=== PATIENT | female | born 1975 | race Caucasian/White ===

== ENCOUNTER 2020-06-15 19:48 | Emergency (ER) | payer OTHER ==
[~2020-06-15] VITALS: Ht 172.7 cm; Wt 127.0 kg
[~2020-06-15 19:48] MED LIST: HYDR-2890 PO; LIRA0.6P SQ; PREN1TAB14 PO
[2020-06-15 20:14] LABS: BILIRUBIN,URINE NEGATIVE (NEGATIVE); CLARITY,URINE CLEAR; COLOR,URINE YELLOW; GLUCOSE, URINE (UA) 3+ (NEGATIVE); KETONES,URINE NEGATIVE (NEGATIVE); LEUKOCYTE ESTERASE ,URINE NEGATIVE (NEGATIVE); NITRITE,URINE NEGATIVE (NEGATIVE); PROTEIN,URINE NEGATIVE (NEGATIVE)
[2020-06-15 20:20] LABS: BACTERIA,URINE TRACE /HPF
[2020-06-15 20:24] LABS: AMPHETAMINE SCREEN, URINE POSITIVE (NEGATIVE); BARBITURATE SCREEN URINE NEGATIVE (NEGATIVE); BENZODIAZEPINES SCREEN URINE NEGATIVE (NEGATIVE); CANNABINOID SCREEN, URINE NEGATIVE (NEGATIVE); COCAINE SCREEN URINE NEGATIVE (NEGATIVE); METHADONE STAT NEGATIVE (NEGATIVE); METHAMPHETAMINE SCREEN URINE S NEGATIVE (NEGATIVE); OPIATE SCREEN URINE NEGATIVE (NEGATIVE); OXYCODONE STAT NEGATIVE (NEGATIVE); PROPOXYPHENE STAT NEGATIVE (NEGATIVE); TRICYCLIC ANTIDEPRESSANTS SCRE NEGATIVE (NEGATIVE)
--- NOTE | 2020-06-15 20:29 | Diagnostic Imaging Report ---
EXAMINATION: Chest 2 view HISTORY: Chest pain. COMPARISON: None available. FINDINGS: The lung volumes are normal. No focal consolidation is seen. No large pleural effusion or pneumothorax is seen. The cardiomediastinal silhouette is normal in size and contour. No acute osseous abnormality is seen. IMPRESSION: 1. No acute pleuroparenchymal process. Dictated by: Dictated on workstation # [id number]
--- NOTE | 2020-06-15 20:31 | Diagnostic Imaging Report ---
CLINICAL HISTORY: Right-sided chest pain. Rib pain. COMPARISON: None. TECHNIQUE: 3 views of the right ribs. FINDINGS: No acute fracture or dislocation is seen in the right ribs. No pleural effusion or pneumothorax on the right. IMPRESSION: 1. No acute displaced fracture or dislocation in the right ribs. Dictated by: Dictated on workstation # [id number]
[2020-06-15] MEDS ORDERED: KETOROLAC 30 MG/ML VIAL IVP STA (20:50)
[2020-06-15] MEDS ORDERED: NS IV 1000 ML 1,000 ML IV SCH (21:00)
--- NOTE | 2020-06-15 21:02 | ED General ---
General Chief Complaint: Chest Wall Stated Complaint: RLQ PAIN Nursing Triage Note: TO ED VIA POV AND AMBULATORY TO ROOM 7 WITH C/O RIGHT SIDE PAIN THAT HAS BEEN ONGOING ON AND OFF FOR 6 MONTHS. WHILE DRIVING AT 1700 STATES SHE "FELT A POP" ON THE RIGHT SIDE UNDER BREAST WITH PAIN RADIATING TO BACK, STATING IT HURTS TO MOVE AND PAINFUL WITH INSPIRATION. TOOK IBUPROFEN AT 1800. Nursing Sepsis Screen: No Definite Risk Source of Information: Patient History of Present Illness Date Seen by Provider: Jun 15, 2020 Time Seen by Provider: 19:55 Initial Comments PT ARRIVES VIA POV FROM HOME C/O PAIN IN RUQ/RIGHT LOWER RIBS, RADIATING AROUND TO RIGHT BACK HAS HAD THIS PAIN OFF AND ON FOR OVER A YEAR PT HAD HEPATITIS C--DX LAST YEAR, AND COMPLETED TREATMENT LAST 2019, AND PAIN WAS BETTER, THEN RETURNED SEVERAL MONTHS AGO PT HAD CHOLECYSTECTOMY 02/2019 FOR THIS SAME PAIN, AND PAIN GOT BETTER AFTER AFTER THAT AND THEN RETURNED TODAY AROUND 1700, WHILE DRIVING SHE FELT A "POP" IN THIS AREA TOOK IBUPROFEN AT 1800, WITHOUT RELIEF HAS TRAMADOL, BUT HAS NOT TAKEN ANY. "AFRAID TO MASK ANYTHING" C/O PAIN WITH INHALATION C/O INCREASED PAIN WITH ANY MOVEMENT OF TRUNK NO FEVER/SWEATS/CHILLS NO NAUSEA/VOMITING/DIARRHEA NO URINARY SYMPTOMS LMP 3 WEEKS AGO, NO CONTROL. STATES ALL PREVIOUS WORK-UP'S/TREATMENTS FOR THIS WERE DONE AT [facility]--REGARDING GALLBLADDER AND HEPATITIS C HAS NOT SEEN ANYONE IN MONTHS FOR IT PT HAS NOT BEEN HERE SINCE 2012 PT HAD COVID-19 IN JANUARY 2020--NO SEVERE ILLNESS OR HOSPITALIZATION. PCP: GUY Allergies and Home Medications Allergies Coded Allergies: morphine (Verified Allergy, Unknown, 06/15/20) Home Medications Cyclobenzaprine HCl 10 Mg Tablet, 10 MG PO Q8H PRN for SPASMS Prescribed by: KRIS CHAVES on 06/15/202207 Hydrocodone Bit/Acetaminophen 1 Each Tablet, 1 EACH PO Q4H PRN Prescribed by: ALEXANDRU GHOTRA on 09/10/122143 Ketorolac Tromethamine 10 Mg Tablet, 10 MG PO Q6H Prescribed by: KRIS CHAVES on 06/15/202207 Liraglutide 0.6 Mg/0.1 Ml Pen.injctr, 0.6 MG SQ DAILY, (Reported) Patient Home Medication List Home Medication List Reviewed: Yes Review of Systems Review of Systems Constitutional: no symptoms reported; No chills, No diaphoresis, No fever EENTM: no symptoms reported Respiratory: see HPI; No cough Cardiovascular: see HPI, chest pain Gastrointestinal: see HPI, abdominal pain; No constipation, No diarrhea, No nausea, No vomiting Genitourinary: no symptoms reported LMP: May 27, 2020 Musculoskeletal: see HPI, back pain Skin: no symptoms reported Psychiatric/Neurological: No Symptoms Reported Hematologic/Lymphatic: No Symptoms Reported Immunological/Allergic: no symptoms reported Past Hqiomtm-Sbooxt-Vjmjlg Hx Past Med/Social Hx: Reviewed and Corrections made Patient Social History Alcohol Use: Denies Use Smoking Status: Current Everyday Smoker Type Used: Cigarettes Recent Infectious Disease Expo: No Seasonal Allergies Seasonal Allergies: No Past Medical History Surgeries: Yes (bilat myringotomy tubes as a child; D&C 2012) Ear Surgery, Gallbladder, Tonsillectomy Respiratory: Yes Sleep Apnea Currently Using CPAP: No Currently Using BIPAP: No Cardiac: No Neurological: No Reproductive Disorders: No Female Reproductive Disorders: Denies Sexually Transmitted Disease: No Genitourinary: No Gastrointestinal: Yes (HEPATITIS C (COMPLETED [place] 10/2019 AND NOW NEGATIVE)) Hepatitis Musculoskeletal: No Endocrine: Yes (Type II--WEEKLY SHOTS OF UNKNOWN DIABETIC MEDICATION) Diabetes, Non-Insulin dep HEENT: Yes (S/P TONSILLECTOMY AND BMT'S ) Chronic Ear Infection, Tonsilitis Cancer: No Psychosocial: Yes (CHRONIC FATIGUE--ON DEXTROAMPHETAMINE) Integumentary: No Blood Disorders: No Adverse Reaction/Blood Tranf: No Family Medical History No Pertinent Family Hx Physical Exam Vital Signs Vital Signs - First Documented 06/15/20 06/15/20 19:55 22:23 Temp 36.0 Pulse 94 Resp 18 B/P (MAP) 139/65 (89) Pulse Ox 100 O2 Delivery Room Air Capillary Refill : Less Than 3 Seconds Height, Weight, BMI Height: '" Weight: lbs. oz. kg; 42.00 BMI Method:Stated General Appearance: No Apparent Distress, Anxious, Obese HEENT: PERRL/EOMI Neck: Normal Inspection Respiratory: Normal Breath Sounds, No Accessory Muscle Use, No Respiratory Di stress, Other (TENDERNESS TO RIGHT LOWER RIBS--ALL AROUND RIGHT SIDE) Cardiovascular: Regular Rate, Rhythm, No Edema, No JVD, No Murmur, Normal Peripheral Pulses Gastrointestinal: Normal Bowel Sounds, Soft, Hepatomegaly, Tenderness (RUQ AND RIGHT FLANK TENDERNESS) Back: No Vertebral Tenderness, CVA Tenderness (R) Extremity: Normal Inspection Neurologic/Psychiatric: Alert, Oriented x3, No Motor/Sensory Deficits, 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 Norm as Tested Skin: Normal Color, Warm/Dry; No Rash Progress/Results/Core Measures Suspected Sepsis Recent Fever Within 48 Hours: No Infection Criteria Present: None New/Unexplained Altered Menta: No Sepsis Screen: No Definite Risk SIRS Temperature: Pulse: 94 Respiratory Rate: 18 Laboratory Tests 06/15/20 21:05: White Blood Count 8.9 Blood Pressure 139 /65 Mean: 89 Laboratory Tests 06/15/20 21:05: Creatinine 0.89, INR Comment 0.9, Platelet Count 182, Total Bilirubin 0.3 Results/Orders Lab Results Laboratory Tests Test 06/15/20 20:05 06/15/20 21:05 06/15/20 22:22 Range/Units Urine Color YELLOW Urine Clarity CLEAR Urine pH 6.0 5-9 Urine Specific [place] 1.010 L 1.016-1.022 Urine Protein NEGATIVE NEGATIVE Urine Glucose (UA) 3+ H NEGATIVE Urine Ketones NEGATIVE NEGATIVE Urine Nitrite NEGATIVE NEGATIVE Urine Bilirubin NEGATIVE NEGATIVE Urine Urobilinogen 0.2 < = 1.0 MG/DL Urine Leukocyte Esterase NEGATIVE NEGATIVE Urine RBC (Auto) NEGATIVE NEGATIVE Urine RBC NONE /HPF Urine WBC NONE /HPF Urine Squamous Epithelial Cells 2-5 /HPF Urine Crystals NONE /LPF Urine Bacteria TRACE /HPF Urine Casts NONE /LPF Urine Mucus NEGATIVE /LPF Urine Culture Indicated NO Urine Opiates Screen NEGATIVE NEGATIVE Urine Oxycodone Screen NEGATIVE NEGATIVE Urine Methadone Screen NEGATIVE NEGATIVE Urine Propoxyphene Screen NEGATIVE NEGATIVE Urine Barbiturates Screen NEGATIVE NEGATIVE Ur Tricyclic Antidepressants Screen NEGATIVE NEGATIVE Urine Phencyclidine Screen NEGATIVE NEGATIVE Urine Amphetamines Screen POSITIVE H NEGATIVE Urine Methamphetamines Screen NEGATIVE NEGATIVE Urine Benzodiazepines Screen NEGATIVE NEGATIVE Urine Cocaine Screen NEGATIVE NEGATIVE Urine Cannabinoids Screen NEGATIVE NEGATIVE White Blood Count 8.9 4.3-11.0 10^3/uL Red Blood Count 5.16 H 3.80-5.11 10^6/uL Hemoglobin 15.4 11.5-16.0 g/dL Hematocrit 46 35-52 % Mean Corpuscular Volume 89 80-99 fL Mean Corpuscular Hemoglobin 30 25-34 pg Mean Corpuscular Hemoglobin Concent 34 32-36 g/dL Red Cell Distribution Width 12.3 10.0-14.5 % Platelet Count 182 130-400 10^3/uL Mean Platelet Volume 10.2 9.0-12.2 fL Immature Granulocyte % (Auto) 0 % Neutrophils (%) (Auto) 57 42-75 % Lymphocytes (%) (Auto) 32 12-44 % Monocytes (%) (Auto) 7 0-12 % Eosinophils (%) (Auto) 3 0-10 % Basophils (%) (Auto) 1 0-10 % Neutrophils # (Auto) 5.1 1.8-7.8 10^3/uL Lymphocytes # (Auto) 2.8 1.0-4.0 10^3/uL Monocytes # (Auto) 0.6 0.0-1.0 10^3/uL Eosinophils # (Auto) 0.3 0.0-0.3 10^3/uL Basophils # (Auto) 0.0 0.0-0.1 10^3/uL Immature Granulocyte # (Auto) 0.0 0.0-0.1 10^3/uL Prothrombin Time 12.7 12.2-14.7 SEC INR Comment 0.9 0.8-1.4 Activated Partial Thromboplast Time 26 24-35 SEC Sodium Level 135 135-145 MMOL/L Potassium Level 4.3 3.6-5.0 MMOL/L Chloride Level 101 98-107 MMOL/L Carbon Dioxide Level 20 L 21-32 MMOL/L Anion Gap 14 5-14 MMOL/L Blood Urea Nitrogen 10 7-18 MG/DL Creatinine 0.89 0.60-1.30 MG/DL Estimat Glomerular Filtration Rate > 60 BUN/Creatinine Ratio 11 Glucose Level 407 *H 70-105 MG/DL Calcium Level 8.9 8.5-10.1 MG/DL Corrected Calcium 8.8 8.5-10.1 MG/DL Magnesium Level 2.0 1.6-2.4 MG/DL Total Bilirubin 0.3 0.1-1.0 MG/DL Aspartate Amino Transf (AST/SGOT) 14 5-34 U/L Alanine Aminotransferase (ALT/SGPT) 17 0-55 U/L Alkaline Phosphatase 94 40-136 U/L Total Protein 7.3 6.4-8.2 GM/DL Albumin 4.1 3.2-4.5 GM/DL Amylase Level 59 25-125 U/L Lipase 67 8-78 U/L Glucometer 291 H 70-110 MG/DL My Orders Orders - KRIS CHAVES DO Monitor-Rhythm Ecg Trace Only (06/15/20 20:03) Chest Pa/Lat (2 View) (06/15/20 20:03) Ribs, Right 2-3 Views (06/15/20 20:03) Drug Screen Stat (Urine) (06/15/20 20:03) Ua Culture If Indicated (06/15/20 20:03) Urine Bedside (06/15/20 20:06) Ed Iv/Invasive Line Start (06/15/20 20:50) Amylase (06/15/20 20:50) Cbc With Automated Diff (06/15/20 20:50) Comprehensive Metabolic Panel (06/15/20 20:50) Lipase (06/15/20 20:50) Magnesium (06/15/20 20:50) Protime With Inr (06/15/20 20:50) Partial Thromboplastin Time (06/15/20 20:50) Ed Iv/Invasive Line Start (06/15/20 20:50) Ns Iv 1000 Ml (Sodium Chloride 0.9%) (06/15/20 21:00) Ketorolac Injection (Toradol Injection) (06/15/20 20:50) [facility] Chest/Noang Abd-Pelv W (06/15/20 20:50) Iohexol Injection (Omnipaque 350 Mg/Ml 1 (06/15/20 21:15) Di Iv Start (Assessment) .IV start (06/15/20 21:14) Received Contrast (Hold Metformin- Contr (06/15/20 21:15) Ns (Ivpb) (Sodium Chloride 0.9% Ivpb Bag (06/15/20 21:15) Insulin (Regular) Human (Novolin R (Per (06/15/20 21:45) Accucheck Stat ONCE (06/15/20 21:59) Medications Given in ED Current Medications Medications Dose Ordered Sig/Felice Route Start Time Stop Time Status Last Admin Dose Admin Insulin Human Regular 15 unit ONCE ONCE IV 06/15/20 21:45 06/15/20 21:46 DC 06/15/20 21:45 15 UNIT Iohexol 100 ml ONCE ONCE IV 06/15/20 21:15 06/15/20 21:16 DC 06/15/20 21:34 88 ML Sodium Chloride 100 ml ONCE ONCE IV 06/15/20 21:15 06/15/20 21:16 DC 06/15/20 21:34 80 ML Vital Signs/I&O 06/15/20 06/15/20 19:55 22:23 Temp 36.0 36.0 Pulse 94 85 Resp 18 16 B/P (MAP) 139/65 (89) 109/83 (89) Pulse Ox 100 O2 Delivery Room Air Room Air 06/16/20 00:00 Intake Total 1000 ml Balance 1000 ml Capillary Refill : Less Than 3 Seconds Blood Pressure Mean: 89 Progress Note : Progress Note GIVEN TORADOL WITH MUCH IMPROVEMENT IN PAIN GIVEN IV FLUIDS AND INSULIN WITH DECREASE IN BLOOD GLUCOSE Diagnostic Imaging Comments CXR AND RIGHT RIB XRAYS--NO ACUTE PROCESS, PER RADIOLOGIST REPORTS AT 2046 CT ANGIOGRAM CHEST/ ABDOMEN AND PELVIS--PER RADIOLOGIST REPORT AT 2158 IMPRESSION: 1. No evidence of aneurysm or dissection in the thoracic and abdominal aorta. 2. No acute abnormalities in the chest, abdomen and pelvis. 3. Hepatic steatosis. 4. Incidentally noted, horseshoe kidney. 5. No evidence of right-sided rib fracture. Reviewed: Reviewed by Me Departure Impression Primary Impression: RUQ abdominal pain Additional Impressions: Right-sided chest wall pain Uncontrolled type 2 diabetes mellitus Disposition: 01 HOME, SELF-CARE Condition: Improved Departure-Patient Inst. Referrals: NO,LOCAL PHYSICIAN (PCP) Primary Care Physician LUIS DANIEL HERNANDEZ APRN (Family) Primary Care Physician [facility] [place] Patient Instructions: Abdominal Muscle Strain ED, Muscle and Bone Pain (DC) Add. Discharge Instructions: MOIST HEAT TO AREA AT 20 MINUTE INTERVALS TAKE YOUR TRAMADOL NEEDED FOR PAIN CONTINUE YOUR REGULAR MEDICATIONS PRESCRIBED CHECK YOUR BLOOD SUGAR AT LEAST 3 TIMES A DAY AND KEEP A DIARY FOLLOW UP WITH YOUR DR IN 3-4 DAYS FOR FURTHER CARE All discharge instructions reviewed with patient and/or family. Voiced understanding. Scripts Ketorolac Tromethamine (Ketorolac Tromethamine) 10 Mg Tablet 10 MG PO Q6H for Pain, #15 TAB Prov: KRIS CHAVES DO 06/15/20 Cyclobenzaprine HCl (Cyclobenzaprine HCl) 10 Mg Tablet 10 MG PO Q8H PRN for SPASMS, #15 TAB 0 Refills Prov: KRIS CHAVES DO 06/15/20 KRIS CHAVES DO Jun 15, 2020 21:02
[2020-06-15 21:13] LABS: BASOPHILS % (AUTO) 1 % (0-10); EOSINOPHILS # (AUTO) 0.3 10^3/uL (0.0-0.3); EOSINOPHILS % (AUTO) 3 % (0-10); HEMATOCRIT 46 % (35-52); HEMOGLOBIN 15.4 g/dL (11.5-16.0); LYMPHOCYTES # (AUTO) 2.8 10^3/uL (1.0-4.0); LYMPHOCYTES % (AUTO) 32 % (12-44); MEAN CORPUSCULAR HEMOGLOBIN 30 pg (25-34); MEAN CORPUSCULAR HGB CONC 34 g/dL (32-36); MEAN CORPUSCULAR VOLUME 89 fL (80-99); MEAN PLATELET VOLUME 10.2 fL (9.0-12.2); MONOCYTES # (AUTO) 0.6 10^3/uL (0.0-1.0); MONOCYTES % (AUTO) 7 % (0-12); NEUTROPHILS # (AUTO) 5.1 10^3/uL (1.8-7.8); NEUTROPHILS % (AUTO) 57 % (42-75); PLATELET COUNT 182 10^3/uL (130-400); WHITE BLOOD COUNT 8.9 10^3/uL (4.3-11.0)
[2020-06-15] MEDS ORDERED: NS 100 ML (IVPB) BAG IV ONE (21:15)
[2020-06-15] MEDS ORDERED: HOLD METFORMIN - RECEIVED CONTRAST 20 ML VIAL IV SCH (21:15)
[2020-06-15] MEDS ORDERED: IOHEXOL 350 MG/ML 100 ML (OMNIPAQUE 350) VIAL IV ONE (21:15)
[2020-06-15 21:25] LABS: ALBUMIN 4.1 GM/DL (3.2-4.5); CHLORIDE 101 MMOL/L (98-107); INR 0.9 (0.8-1.4); POTASSIUM 4.3 MMOL/L (3.6-5.0); PROTHROMBIN TIME PATIENT 12.7 SEC (12.2-14.7); SODIUM 135 MMOL/L (135-145)
[2020-06-15 21:26] LABS: AMYLASE 59 U/L (25-125); CALCIUM 8.9 MG/DL (8.5-10.1)
[2020-06-15 21:27] LABS: TOTAL PROTEIN 7.3 GM/DL (6.4-8.2)
[2020-06-15 21:28] LABS: CARBON DIOXIDE 20 MMOL/L (21-32)
[2020-06-15 21:29] LABS: BILIRUBIN,TOTAL 0.3 MG/DL (0.1-1.0)
[2020-06-15 21:30] LABS: ALKALINE PHOSPHATASE 94 U/L (40-136)
[2020-06-15 21:31] LABS: CREATININE SERUM 0.89 MG/DL (0.60-1.30); GFR ESTIMATED > 60
[2020-06-15 21:32] LABS: BUN/CREATININE RATIO 11; GLUCOSE 407 MG/DL (70-105)
[2020-06-15 21:34] LABS: ALANINE AMINOTRANSFERASE 17 U/L (0-55)
[2020-06-15 21:35] LABS: LIPASE 67 U/L (8-78)
[2020-06-15] MEDS ORDERED: inSUlin (REGULAR) HUMAN 1 UNIT/0.01 ML (CHARGE PER UNIT) IV ONE (21:45)
--- NOTE | 2020-06-15 21:52 | Diagnostic Imaging Report ---
INDICATION: Chest pain. Right upper quadrant pain. CTA chest, abdomen and pelvis Thin axial sections through the chest, abdomen and pelvis are obtained following intravenous contrast bolus. Multiplanar MIP images were reconstructed and reviewed. All CT scans use one or more of the following dose optimizing techniques: automated exposure control, MA and/or KvP adjustment based on patient size and exam type or iterative reconstruction. COMPARISON: Radiographs performed earlier the same date. CTA chest: The heart size is within normal limits. No pericardial effusion is present. The thoracic aorta is unremarkable. No evidence of aneurysm or dissection. No pulmonary emboli are seen to the segmental pulmonary arteries. There is no mediastinal, hilar, or axillary lymphadenopathy. The lung windows demonstrate no pulmonary nodules or masses. There are no focal areas of consolidation. No pneumothoraces are present. No central endobronchial obstructing lesions are identified. There are no pleural effusions. The osseous structures demonstrate degenerative changes without focal lytic or blastic lesions. CTA abdomen and pelvis: The abdominal aorta demonstrates a small amount of atherosclerotic plaque without evidence of aneurysm or dissection. No periaortic inflammatory changes. The celiac axis, SMA, JAROD, and renal arteries are patent. The bilateral iliac systems demonstrate atherosclerotic plaque without aneurysm. Horseshoe kidney is noted. No evidence of solid renal mass. No hydronephrosis or renal calculi. The urinary bladder is unremarkable. There is hepatic steatosis. No focal hepatic lesions. The spleen, pancreas, and adrenal glands have a normal appearance. The gallbladder is surgically absent. There is no pathologically enlarged mesenteric or retroperitoneal adenopathy. The bowel loops are nondilated. The appendix is visualized in the right lower quadrant and has a normal appearance. There is no free fluid or free air. The osseous structures are age-appropriate. There is no free air, loculated collection, or adenopathy in the pelvis. IMPRESSION: 1. No evidence of aneurysm or dissection in the thoracic and abdominal aorta. 2. No acute abnormalities in the chest, abdomen and pelvis. 3. Hepatic steatosis. 4. Incidentally noted, horseshoe kidney. 5. No evidence of right-sided rib fracture. Dictated by: Dictated on workstation # [id number]
[2020-06-15] MEDS ORDERED: KETO10TA PO (22:08)
[2020-06-15] MEDS ORDERED: CYCL10TA9 PO (22:08)
[2020-06-15 22:23] VITALS: BP 109/83
== END 2020-06-15 22:27 | disposition home or self-care (01) ==
LOC: EDUNIT# 19:48 → ER 19:49
DX: R10.11 Right upper quadrant pain (principal); R07.89 Other chest pain; E11.65 Type 2 diabetes mellitus with hyperglycemia; E66.9 Obesity, unspecified; F17.210 Nicotine dependence, cigarettes, uncomplicated; Z88.5 Allergy status to narcotic agent; Z68.41 Body mass index [BMI] 40.0-44.9, adult
CPT/HCPCS: 36415; 71046; 71100; 71275; 74177; 80053; 80306; 81000; 82150; 82962; 83690; 83735; 84703; 85025; 85610; 85730; 93041

== ENCOUNTER → 2021-03-02 | Outpatient (CLI) | payer OTHER ==
[~2021-03-02] MED LIST changes: +CYCL10TA25 PO; +KETO10TA PO
--- NOTE | 2021-03-02 09:33 | Diagnostic Imaging Report ---
EXAMINATION: MRI of the abdomen without contrast. MRCP TECHNIQUE: Multiplanar, multisequence MR images of the abdomen were obtained without intravenous contrast including 3D MIP MRCP images. HISTORY: Right upper quadrant pain. COMPARISON: None available. FINDINGS: Liver: No suspicious liver lesions. Moderate steatosis. No surface nodularity. Ducts: No biliary ductal dilation. No stones or mass. Gallbladder: Absent. Pancreas: Normal. Spleen: Normal. Adrenals: Normal. Kidneys: No suspicious lesions. No hydronephrosis. Horseshoe configuration. Bowel: Normal. Other: No lymphadenopathy. Visualized portions of the thorax are normal. No suspicious osseous lesions. IMPRESSION: 1. Moderate hepatic steatosis. 2. Absent gallbladder, normal bile ducts. Dictated by: Dictated on workstation # [id number]
== END ==
LOC: RAD 08:00
PROVIDERS: ATTEND Pediatrics
DX: K76.0 Fatty (change of) liver, not elsewhere classified (principal); R74.8 Abnormal levels of other serum enzymes; Z90.49 Acquired absence of other specified parts of digestive tract
CPT/HCPCS: 74181